=== PATIENT | male | born 1990 | race Caucasian/White ===

== ENCOUNTER 2018-03-30 23:06 | Emergency (ER) | payer BC ==
[~2018-03-30] VITALS: Ht 182.9 cm; Wt 79.4 kg
[~2018-03-30 23:06] MED LIST: ADDERALL 30 MG30 MG PO; IBUPROFEN 600600 M1 PO; NORCO 5-325 TA1 EACH PO; VALIUM5 MG PO
[2018-03-31 01:16] VITALS: BP 114/68
== END 2018-03-31 01:17 | disposition home or self-care (01) ==
LOC: ER 23:06
DX: S61.412A Laceration without foreign body of left hand, initial encounter (principal); F90.9 Attention-deficit hyperactivity disorder, unspecified type; Z88.1 Allergy status to other antibiotic agents; W26.0XXA Contact with knife, initial encounter; Y93.89 Activity, other specified; Y92.89 Other specified places as the place of occurrence of the external cause; Y99.8 Other external cause status

== ENCOUNTER → 2018-08-14 | Outpatient (CLI) | payer BC | LOC: ULTRA 10:51 | DX: K76.0 Fatty (change of) liver, not elsewhere classified (principal) ==